=== PATIENT | male | born 1970 | race Caucasian/White ===

== ENCOUNTER 2018-11-14 23:37 | Emergency (ER) | payer OTHER ==
[2018-11-15] MEDS ORDERED: ONDANSETRON 4 MG/2 ML VIAL IVP STA (00:03)
--- NOTE | 2018-11-15 00:05 | ED ---
General Adult HPI - General Chief complaint: Overdose Stated complaint: Drug Overdose Time Seen by Provider: 11/14/18 23:38 Source: patient, EMS, RN notes reviewed, old records reviewed Mode of arrival: EMS Limitations: no limitations - History of Present Illness Initial comments: 48-year-old male presenting status post heroin overdose. Patient was found by EMS no respirations, hypoxic, pinpoint pupils. He is given 2 mg of Narcan IV. Patient is alert and oriented to time my evaluation, no complaints. States he had snorted with primary to be heroin prior to this event. He was previously incarcerated and has not done heroin for the past 2 years. Denies any suicidal ideation or attempt. This was recreational. No other substances ingested. - Related Data Home Medications Medication Instructions Recorded Confirmed PARoxetine [Paxil] 10 mg PO DAILY 11/14/18 11/14/18 Allergies Allergy/AdvReac Type Severity Reaction Status Date / Time No Known Allergies Allergy Verified 11/14/18 23:50 Review of Systems ROS Statement: Those systems with pertinent positive or pertinent negative responses have been documented in the HPI. ROS Other: All systems not noted in ROS Statement are negative. Past Medical History Past Medical History: No Reported History History of Any Multi-Drug Resistant Organisms: None Reported Past Surgical History: No Surgical Hx Reported Past Psychological History: Anxiety, Bipolar Smoking Status: Current every day smoker Past Alcohol Use History: Daily Past Drug Use History: Cocaine, Heroin General Exam Limitations: no limitations General appearance: alert, in no apparent distress Head exam: Present: atraumatic, normocephalic Eye exam: Present: normal appearance, PERRL, EOMI ENT exam: Present: normal exam Neck exam: Present: normal inspection. Absent: tenderness, meningismus Respiratory exam: Present: normal lung sounds bilaterally, respiratory distress Cardiovascular Exam: Present: regular rate, normal rhythm GI/Abdominal exam: Present: soft. Absent: distended, tenderness Rectal exam: Present: deferred Extremities exam: Present: normal inspection, normal capillary refill. Absent: pedal edema Neurological exam: Present: alert, oriented X3 Psychiatric exam: Absent: homicidal ideation, suicidal ideation Skin exam: Present: warm, dry, intact. Absent: cyanosis, diaphoretic Course Vital Signs 11/14/18 11/15/18 23:45 00:27 Temperature 98.9 F 99.3 F Pulse Rate 90 94 Respiratory 20 15 Rate Blood Pressure 128/76 115/79 O2 Sat by Pulse 95 97 Oximetry Medical Decision Making - Medical Decision Making Patient with heroin overdose patient does admit to snorting heroin. Given Narcan by EMS approximately 30 minutes prior to arrival. He is observed in the emergency department for 2 hours. He's has normal respirations, is awake and alert, not requiring supplemental oxygen. Patient is accompanied by family member. They will continue to observe the next several hours. Disposition Clinical Impression: Accidental drug ingestion, Poisoning by opiate or related narcotic Disposition: HOME SELF-CARE Condition: Fair Instructions (If sedation given, give patient instructions): Narcotic Use Disorder (ED), Adult Overdose (ED) Is patient prescribed a controlled substance at d/c from ED?: No Referrals: None,Stated [Primary Care Provider] - 1-2 days An Hobbs MD [REFERRING] - 1-2 days Time of Disposition: 01:18
[2018-11-15 00:28] VITALS: TEMP 99.3
[2018-11-15 01:29] VITALS: BP 122/68; PULSE 100; RESP 17
== END 2018-11-15 01:32 | disposition home or self-care (01) ==
LOC: EC 23:37
DX: T40.1X1A Poisoning by heroin, accidental (unintentional), initial encounter (principal); F41.9 Anxiety disorder, unspecified; F31.9 Bipolar disorder, unspecified; F17.200 Nicotine dependence, unspecified, uncomplicated; Z79.899 Other long term (current) drug therapy
CPT/HCPCS: 99284; 96374; J2405